=== PATIENT | female | born 1975 | race Caucasian/White ===

== ENCOUNTER → 2019-08-31 | Emergency (ER) | payer OTHER ==
[~2019-08-31] VITALS: Ht 170.2 cm; Wt 101.6 kg
[~2019-08-31] MED LIST: ADDERALL XR 2020 MG PO
[2019-09-01 01:50] VITALS: BP 127/82
== END ==
LOC: M.ERS 22:35
DX: M25.571 Pain in right ankle and joints of right foot (principal); F90.9 Attention-deficit hyperactivity disorder, unspecified type; Z90.49 Acquired absence of other specified parts of digestive tract; Z90.710 Acquired absence of both cervix and uterus; Z88.6 Allergy status to analgesic agent